=== PATIENT | female | born 1995 | race Caucasian/White ===

== ENCOUNTER 2017-09-07 08:14 | Emergency (ER) | payer BC, OTHER ==
[2017-09-07 08:34] VITALS: BP 104/74
--- NOTE | 2017-09-07 10:03 | UC ---
Throat Pain/Nasal Maximus HPI - HPI Summary HPI Summary: [address], PERDOMO, MILD COUGH/CONGESTION AND SNEEZING. NO FEVER. FLU EXPOSURE A COUPLE OF WEEKS AGO. GOT PROPHYLACTIC TAMIFLU BUT DID NOT TAKE IT. - History of Current Complaint Chief Complaint: UCGeneralIllness Stated Complaint: SORE THROAT, HEADACHE Time Seen by Provider: 09/07/17 08:38 Hx Obtained From: Patient, Family/Meat Team Member - MOM Hx Last Menstrual Period: 09/07/17 Onset/Duration: Gradual Onset, Lasting Days, Still Present Severity: Moderate Pain Intensity: 5 Pain Scale Used: 0-10 Numeric Cough: Nonproductive Associated Signs & Symptoms: Positive: Nasal Discharge. Negative: Wheezing, Hoarseness, Fever - Allergies/Home Medications Allergies/Adverse Reactions: Allergies Allergy/AdvReac Type Severity Reaction Status Date / Time Penicillins Allergy Hives Verified 09/07/17 09:59 Home Medications: Home Medications Norelgestromin/Ethin.estradiol [Xulane Patch] 1 patch TRANSDERM WEEKLY 09/07/17 [History Confirmed 09/07/17] PMH/Surg Hx/FS Hx/Imm Hx Other Cancer History: HODGKINS LYMPHOMA - Surgical History Surgical History: Yes Surgery Procedure, Year, and Place: port for chemo - Family History Known Family History: Positive: Hypertension - Social History Alcohol Use: Occasionally Substance Use Type: None Smoking Status (MU): Never Smoked Tobacco - Immunization History Vaccination Up to Date: Yes Review of Systems Constitutional: Fatigue ENT: Sore Throat, Nasal Discharge Respiratory: Cough Cardiovascular: Negative Gastrointestinal: Negative Neurological: Headache All Other Systems Reviewed And Are Negative: Yes Physical Exam Triage Information Reviewed: Yes Appearance: Well-Appearing, No Pain Distress, Well-Nourished Vital Signs: Initial Vital Signs Temp 97.9 F 09/07/17 08:26 Pulse 76 09/07/17 08:26 Resp 16 09/07/17 08:26 BP 104/74 09/07/17 08:26 Pulse Ox 97 09/07/17 08:26 Vital Signs Reviewed: Yes Eyes: Positive: Conjunctiva Clear ENT: Positive: Hearing grossly normal, Pharynx normal, TMs normal Neck: Positive: Supple, Nontender, Enlarged Nodes @ - SHOTTY SPFL CERVICAL LAD RIGHT SIDE Respiratory Exam: Normal Cardiovascular Exam: Normal Abdomen Description: Positive: Soft Musculoskeletal: Positive: No Edema Neurological: Positive: Alert Psychological: Positive: Age Appropriate Behavior Skin: Negative: rashes Diagnostics - Laboratory Diagnostic Studies Completed/Ordered: FLU NEG. STREP NEG Throat Pain/Nasal Course/Dx - Differential Dx/Diagnosis Provider Diagnoses: ACUTE PHARYNGITIS Discharge - Discharge Plan Condition: Stable Disposition: HOME Patient Education Materials: Pharyngitis (ED) Forms: *Work Release Referrals: Quintin Cisneros MD [Primary Care Provider] - If Needed Additional Instructions: FLU AND STREP TESTS BOTH NEGATIVE. YOUR SYMPTOMS ARE LIKELY VIRALLY MEDIATED AND SHOULD RESOLVE ON THEIR OWN WITH TIME. REST, HYDRATE, OTC MEDS NEEDED. SEEK FOLLOW-UP IF YOU ARE NOT IMPROVING OVER THE NEXT 1-2 WEEKS.
== END 2017-09-07 10:15 | disposition home or self-care (01) ==
LOC: UCEAST 08:14
DX: J02.9 Acute pharyngitis, unspecified (principal)
CPT/HCPCS: 87502; 87651; 99211; G0463

== ENCOUNTER 2017-09-16 18:29 | Emergency (ER) | payer BC, OTHER ==
[2017-09-16 19:22] VITALS: BP 110/71
[2017-09-16] MEDS ORDERED: Azithromycin TAB* 250 MG PO ONE (19:37)
[2017-09-16] MEDS ORDERED: Albuterol HFA INHALER* 8 gm MDI INH ONE (19:38)
[2017-09-16] MEDS ORDERED: predniSONE TAB* 20 MG PO ONE (19:38)
--- NOTE | 2017-09-16 20:47 | UC ---
Pino Morales Jason, scribed for Eric Harris MD on 09/16/17 at 1942 . Respiratory Complaint HPI - HPI Summary HPI Summary: This patient is a 22 year old F presenting to [facility] accompanied by mother with a chief complaint of cough since a few days ago. Pt complains of cough, headache, fatigue, "stomach feeling off", and chest pain that is worse when patient coughs. She states her chest feels tight when breathing, and that there is a sore throat only when I cough. She states she was ill 1 week ago, recovered, and is now experiencing similar symptoms however her coughing is new. Additionally, her father experienced the same symptoms recently and has recovered. The patient rates the pain 5/10 in severity. Symptoms aggravated by nothing. Symptoms alleviated by nothing. Patient reports productive cough, sore throat, and intermittent rhinorrhea. - History of Current Complaint Chief Complaint: UCGeneralIllness Stated Complaint: COUGH,HEADACHE Time Seen by Provider: 09/16/17 19:24 Hx Last Menstrual Period: 09/09/17 Onset/Duration: Gradual Onset, Lasting Days - "since a few days ago" Pain Intensity: 5 Pain Scale Used: 0-10 Numeric Aggravating Factors: Nothing Alleviating Factors: Nothing - Allergies/Home Medications Allergies/Adverse Reactions: Allergies Allergy/AdvReac Type Severity Reaction Status Date / Time Penicillins Allergy Hives Verified 09/16/17 19:13 Home Medications: Home Medications Dextromethorphan Polistirex [Delsym] 30 mg PO ONCE 09/16/17 [History Confirmed 09/16/17] PMH/Surg Hx/FS Hx/Imm Hx Previously Healthy: Yes Respiratory History: Other Other Respiratory History: negative asthma Other Cancer History: Hodgkin's lymphoma - Surgical History Surgical History: Yes Surgery Procedure, Year, and Place: port for chemo - Family History Known Family History: Positive: Hypertension - Social History Alcohol Use: None Substance Use Type: None Smoking Status (MU): Never Smoked Tobacco - Immunization History Vaccination Up to Date: Yes Review of Systems Constitutional: Fatigue ENT: Sore Throat - only when coughing, Other - intermittent rhinorrhea Respiratory: Cough Cardiovascular: Chest Pain - worse when patient coughs Gastrointestinal: Other - "stomach feeling off" Neurological: Headache All Other Systems Reviewed And Are Negative: Yes Physical Exam - Summary Physical Exam Summary: General: well-appearing, no pain distress Skin: warm, color reflects adequate perfusion, dry Head: normal Eyes: EOMI, CATARINA ENT: Mild posterior pharynx erythema Neck: supple, nontender, Positive anterior cervical lymphadenopathy Respiratory: CTA, breath sounds present Cardiovascular: RRR Abdomen: soft, nontender Bowel: present Musculoskeletal: normal, strength/ROM intact Neurological: normal, sensory/motor intact, A&O x3 Psychological: affect/mood appropriate Triage Information Reviewed: Yes Vital Signs: Initial Vital Signs Temp 98.8 F 09/16/17 19:15 Pulse 96 09/16/17 19:15 Resp 20 09/16/17 19:15 BP 110/71 09/16/17 19:15 Pulse Ox 100 09/16/17 19:15 Diagnostic Evaluation - Laboratory O2 Sat by Pulse Oximetry: 100 Respiratory Course/Dx - Course Course Of Treatment: In the UC course the patient was given albuterol inhaler, azithromycin, and prednisone. - Differential Dx/Diagnosis Provider Diagnoses: BRONCHITIS WITH BRONCHOSPASM Discharge - Discharge Plan Condition: Stable Disposition: HOME Prescriptions: Azithromycin TAB* [Zithromax TAB (Z-BRAYAN) 250 mg #6 tabs] 250 mg PO DAILY #4 tab guaiFENesin/CODIEN 100MG-10MG* [Robitussin AC 100Mg-10Mg*] 10 ml PO Q4H PRN # 180 ml MDD 60ML PRN Reason: Cough predniSONE TAB* [Deltasone TAB*] 40 mg PO DAILY #8 tab Patient Education Materials: Acute Bronchitis (ED), Bronchospasm (ED) Forms: *Work Release Referrals: Quintin Cisneros MD [Primary Care Provider] - Additional Instructions: FOLLOW UP WITH YOUR DOCTOR. GET RECHECKED FOR ANY WORSENING OF YOUR CONDITION OR QUESTIONS OR CONCERNS. The documentation as recorded by the Pino ibarra Jason accurately reflects the service I personally performed and the decisions made by me, Eric Harris MD.
== END 2017-09-16 19:56 | disposition home or self-care (01) ==
LOC: UCEAST 18:29
DX: J20.9 Acute bronchitis, unspecified (principal); R59.0 Localized enlarged lymph nodes; Z85.71 Personal history of Hodgkin lymphoma; Z88.0 Allergy status to penicillin
CPT/HCPCS: 99213; A9270-GY; G0463; J7512

== ENCOUNTER 2019-02-16 10:33 | Emergency (ER) | payer BC ==
[2019-02-16 11:43] LABS: Urine Appearance Clear; Urine Bacteria Absent (Absent); Urine Bilirubin Negative (Negative); Urine Blood 1+ (Negative); Urine Color Yellow; Urine Glucose Negative (Negative); Urine Ketones Negative (Negative); Urine Nitrite Negative (Negative); Urine Protein Negative (Negative); Urine Red Blood Cell Trace(0-2/hpf) (Absent); Urine Specific Gravity 1.016 (1.010-1.030); Urine Squamous Epithelial Cell Present (Absent); Urine Urobilinogen Negative (Negative); Urine White Blood Cell Trace(0-5/hpf) (Absent)
[2019-02-16 12:04] LABS: ABS Basophils 0.1 10^3/ul (0-0.2); ABS Eosinophils 0.1 10^3/ul (0-0.6); ABS Lymphocytes 2.1 10^3/ul (1.0-4.8); ABS Monocytes 0.5 10^3/ul (0-0.8); ABS Neutrophils 3.3 10^3/ul (1.5-7.7); Eosinophil % 1.5 %; Hematocrit 38 % (35-47); Hemoglobin 12.7 g/dL (12.0-16.0); Lymphocyte % 35.2 %; Mean Corpuscular HGB Conc 33 g/dL (31-36); Mean Corpuscular Hemoglobin 28 pg (27-31); Mean Corpuscular Volume 85 fL (80-97); Platelet Count 251 10^3/uL (150-450); Red Blood Count 4.46 10^6 /uL (3.70-4.87); Red Cell Distribution Width 13 % (10-15); White Blood Count 6.1 10^3/uL (3.5-10.8)
[2019-02-16 12:19] LABS: ALT 12 U/L (7-52); AST 13 U/L (13-39); Albumin 4.4 g/dL (3.2-5.2); Albumin/Globulin Ratio 1.5 (1-3); Alkaline Phosphatase 44 U/L (34-104); Anion Gap 6 mmol/L (2-11); BUN/Creatinine Ratio 12.3 (8-20); Blood Urea Nitrogen 7 mg/dL (6-24); C Reactive Protein 10.98 mg/L (<8.01); CO2 Carbon Dioxide 27 mmol/L (22-32); Calcium 9.9 mg/dL (8.6-10.3); Chloride 105 mmol/L (101-111); EGFR African American 160.5 (>60); EGFR Non-African American 132.6 (>60); Glucose 99 mg/dL (70-100); Magnesium 1.9 mg/dL (1.9-2.7); Potassium 4.2 mmol/L (3.5-5.0); Sodium 138 mmol/L (135-145); Total Protein 7.4 g/dL (6.4-8.9)
[2019-02-16 12:25] LABS: HCG Pregnancy < 0.60 mIU/mL
--- NOTE | 2019-02-16 12:32 | ED ---
Abdominal Pain/Female - HPI Summary HPI Summary: 24-year-old female presents with complaints of nausea, vomiting, diarrhea for the past 2 weeks. Patient states she typically wakes up first thing in the morning feeling very nauseated and vomits. Rarely has vomiting during the day. Patient does report 3-5 episodes of mucousy diarrhea every day which typically occurs after eating. States she has lost 14 pounds in the last 2 weeks. States 2 months ago she was having some similar symptoms however she was having abdominal pain at that time which she is not currently experiencing. She was supposed to be seen by gastroenterology and have an EGD and colonoscopy performed but her symptoms subsided and she canceled the appointment. Patient also states that she has been having her period for the last 2 weeks. However she also notes that when her symptoms started she thought it may have been related to her control patch and removed it. She has since restarted the patch. Denies fever, chills, dizziness, lightheadedness, abdominal pain, dysuria, frequency, urgency, vaginal discharge , or dyspareunia. - History of Current Complaint Chief Complaint: EDNauseaVomitDiarrh Stated Complaint: VOMITING AND DIARRHEA FOR TWO WEEKS PER PT Time Seen by Provider: 02/16/19 11:00 Hx Obtained From: Patient Hx Last Menstrual Period: 09/09/17 Pain Intensity: 0 Allergies/Adverse Reactions: Allergies Allergy/AdvReac Type Severity Reaction Status Date / Time Penicillins Allergy Hives Verified 02/16/19 11:24 Home Medications: Home Medications LORazepam [Ativan 0.5 MG TAB] 1 tab PO Q8H PRN 02/16/19 [History Confirmed 02/16] Ondansetron TAB* [Zofran 4 MG Tab*] 4 mg PO Q8H PRN 02/16/19 [History Confirmed 02/16/19] PMH/Surg Hx/FS Hx/Imm Hx Previously Healthy: Yes Endocrine/Hematology History: Denies: Hx Diabetes, Hx Thyroid Disease Cardiovascular History: Denies: Hx Hypercholesterolemia, Hx Hypertension, Hx Pacemaker/ICD, Hx Peripheral Vascular Disease Respiratory History: Denies: Hx Asthma, Hx Chronic Obstructive Pulmonary Disease (COPD) GI History: Denies: Hx Crohn's Disease, Hx Diverticulosis, Hx Gall Bladder Disease, Hx Gastroesophageal Reflux Disease, Hx Gastrointestinal Bleed, Hx Irritable Bowel, Hx Obstructive Bowel, Hx Ulcer Musculoskeletal History: Denies: Hx Arthritis, Hx Osteoporosis Sensory History: Denies: Hx Cataracts, Hx Contacts or Glasses, Hx Glaucoma, Hx Hearing Aid Opthamlomology History: Denies: Hx Cataracts, Hx Contacts or Glasses, Hx Glaucoma Neurological History: Denies: Hx Headaches, Hx Seizures, Hx Transient Ischemic Attacks (TIA) Psychiatric History: Denies: Hx Anxiety, Hx Depression, Hx Panic Disorder - Cancer History Cancer Type, Location and Year: Hodgkins lymphoma- 2014 - Surgical History Surgery Procedure, Year, and Place: port for chemo Infectious Disease History: No Infectious Disease History: Denies: Hx Clostridium Difficile, Hx Hepatitis, Hx Human Immunodeficiency Virus (HIV), Hx of Known/Suspected MRSA, Hx Shingles, Hx Tuberculosis, Hx Known/ Suspected VRE, Hx Known/Suspected VRSA, History Other Infectious Disease, Traveled Outside the [place] in Last 30 Days - Family History Known Family History: Positive: Hypertension - Social History Occupation: Employed Full-time Lives: With Family Alcohol Use: None Hx Substance Use: No Substance Use Type: Reports: None Hx Tobacco Use: No Smoking Status (MU): Never Smoked Tobacco Review of Systems Negative: Fever, Chills Cardiovascular: Negative Respiratory: Negative Positive: Vomiting, Diarrhea, Nausea, Other - Weight loss. Negative: Abdominal Pain Positive: other - Vaginal bleeding. Negative: burning, frequency, flank pain, hematuria, urgency Musculoskeletal: Negative Skin: Negative Neurological: Negative All Other Systems Reviewed And Are Negative: No Physical Exam - Summary Physical Exam Summary: GENERAL APPEARANCE: Well developed, well nourished, alert and cooperative, and appears to be in no acute distress. CARDIAC: Normal S1 and S2. No S3, S4 or murmurs. Rhythm is regular. There is no peripheral edema, cyanosis or pallor. Extremities are warm and well perfused. Capillary refill is less than 2 seconds. Peripheral pulses intact. LUNGS: Clear to auscultation without rales, rhonchi, wheezing or diminished breath sounds. ABDOMEN: Positive bowel sounds. Soft, nondistended, nontender. No guarding or rebound. No masses or hepatosplenomegally. No CVA tenderness. MUSKULOSKELETAL: ROM intact to all extremities. No joint erythema or tenderness. Normal muscular development. Normal gait. SKIN: Skin normal color, texture and turgor with no lesions or eruptions. Triage Information Reviewed: Yes Vital Signs On Initial Exam: Initial Vitals Temp Pulse Resp BP Pulse Ox 98.8 F 82 16 145/90 94 02/16/19 10:37 02/16/19 10:37 02/16/19 10:37 02/16/19 10:37 02/16/19 10:37 Vital Signs Reviewed: Yes Diagnostics - Vital Signs Vital Signs Temp Pulse Resp BP Pulse Ox 02/16/19 10:37 98.8 F 82 16 145/90 94 - Laboratory Lab Results: Lab Results 02/16/19 02/16/19 02/16/19 Range/Units 11:19 11:53 11:53 WBC 6.1 (3.5-10.8) 10^3/uL RBC 4.46 (3.70-4.87) 10^6 /uL Hgb 12.7 (12.0-16.0) g/dL Hct 38 (35-47) % MCV 85 (80-97) fL MCH 28 (27-31) pg MCHC 33 (31-36) g/dL RDW 13 (10-15) % Plt Count 251 (150-450) 10^3/uL MPV 9.0 (7.4-10.4) fL Neut % (Auto) 53.5 % Lymph % (Auto) 35.2 % Mathews % (Auto) 8.2 % Eos % (Auto) 1.5 % Baso % (Auto) 1.6 % Absolute Neuts (auto) 3.3 (1.5-7.7) 10^3/ul Absolute Lymphs (auto) 2.1 (1.0-4.8) 10^3/ul Absolute Monos (auto) 0.5 (0-0.8) 10^3/ul Absolute Eos (auto) 0.1 (0-0.6) 10^3/ul Absolute Basos (auto) 0.1 (0-0.2) 10^3/ul Absolute Nucleated RBC 0.0 10^3/ul Nucleated RBC % 0.0 Sodium 138 (135-145) mmol/L Potassium 4.2 (3.5-5.0) mmol/L Chloride 105 (101-111) mmol/L Carbon Dioxide 27 (22-32) mmol/L Anion Gap 6 (2-11) mmol/L BUN 7 (6-24) mg/dL Creatinine 0.57 (0.51-0.95) mg/dL Est GFR ( Amer) 160.5 (>60) Est GFR (Non-Af Amer) 132.6 (>60) BUN/Creatinine Ratio 12.3 (8-20) Glucose 99 (70-100) mg/dL Calcium 9.9 (8.6-10.3) mg/dL Magnesium 1.9 (1.9-2.7) mg/dL Total Bilirubin 1.00 (0.2-1.0) mg/dL AST 13 (13-39) U/L ALT 12 (7-52) U/L Alkaline Phosphatase 44 (34-104) U/L C-Reactive Protein 10.98 H (<8.01) mg/L Total Protein 7.4 (6.4-8.9) g/dL Albumin 4.4 (3.2-5.2) g/dL Globulin 3.0 (2-4) g/dL Albumin/Globulin Ratio 1.5 (1-3) Lipase 13 (11.0-82.0) U/L Beta HCG, Quant Pending Urine Color Yellow Urine Appearance Clear Urine pH 9.0 (5-9) Ur Specific Holcomb 1.016 (1.010-1.030) Urine Protein Negative (Negative) Urine Ketones Negative (Negative) Urine Blood 1+ A (Negative) Urine Nitrate Negative (Negative) Urine Bilirubin Negative (Negative) Urine Urobilinogen Negative (Negative) Ur Leukocyte Esterase Negative (Negative) Urine WBC (Auto) Trace(0-5/hpf) (Absent) Urine RBC (Auto) Trace(0-2/hpf) (Absent) Ur Squamous Epith Cells Present A (Absent) Urine Bacteria Absent (Absent) Urine Glucose Negative (Negative) Result Diagrams: 02/16/19 11:53 02/16/19 11:53 Lab Statement: Any lab studies that have been ordered have been reviewed, and results considered in the medical decision making process. Abdominal Pain Fem Course/Dx - Course Course Of Treatment: 24-year-old female presents with complaints of nausea, vomiting, diarrhea for the past 2 weeks. Patient states she typically wakes up first thing in the morning feeling very nauseated and vomits. Rarely has vomiting during the day. Patient does report 3-5 episodes of mucousy diarrhea every day which typically occurs after eating. States she has lost 14 pounds in the last 2 weeks. States 2 months ago she was having some similar symptoms however she was having abdominal pain at that time which she is not currently experiencing. She was supposed to be seen by gastroenterology and have an EGD and colonoscopy performed but her symptoms subsided and she canceled the appointment. Patient also states that she has been having her period for the last 2 weeks. However she also notes that when her symptoms started she thought it may have been related to her control patch and removed it. She has since restarted the patch. Denies fever, chills, dizziness, lightheadedness, abdominal pain, dysuria, frequency, urgency, vaginal discharge , or dyspareunia. Afebrile. Vital signs stable. She had a soft, nontender abdomen with good bowel sounds and otherwise unremarkable exam. The CBC and CMP were unremarkable. She did have an elevated CRP of 10.98. I discussed these findings with the patient. With her having stable vital signs, normal labs, and a nontender abdomen we are electing to defer imaging at this time. The patient had no episodes of vomiting or diarrhea during her stay in the emergency room. I did give her a dose of ondansetron for some nausea which did improve. We provided her with a stool collection kit and I provided and prescription for her to have a stool culture, occult blood, ova and parasite, and fecal lactoferrin done outpatient. I have recommended that she try using an [id number] antidiarrheal such as Imodium to help manage her symptoms. She is to follow-up with gastroenterology in 3-5 days for further evaluation and treatment. Anticipatory guidance and warning symptoms are reviewed with the patient. Verbalizes understanding and agrees with plan of care. - Diagnoses Differential Diagnosis: Positive: Gall Bladder Disease, Irritable Bowel Syndrome , , Urinary Tract Infection Provider Diagnoses: Acute diarrhea Discharge - Sign-Out/Discharge Documenting (check all that apply): Patient Departure Patient Received Moderate/Deep Sedation with Procedure: No - Discharge Plan Condition: Stable Disposition: HOME Prescriptions: Ondansetron TAB* [Zofran 4 MG Tab*] 4 mg PO Q8H PRN #12 tab PRN Reason: Nausea/Vomiting Patient Education Materials: Acute Diarrhea (ED) Referrals: Rizwan Iniguez MD [Primary Care Provider] - Luis Fernando Escalante MD [Medical Doctor] - 3 Days Additional Instructions: The lab work performed in the emergency room today was normal. We will send her home with a stool collection kit so that she can return a specimen for testing. Be sure to drink plenty of fluids. Avoid beverages containing caffeine or artificial sweeteners as these can worsen symptoms. Take ondansetron 4 mg every 8 hours as needed for nausea and vomiting. Be sure to eat a well balanced diet. Boiled starches and cereals (potatoes, rice , cream of wheat, oatmeal) as well as food such as crackers, toast, bananas, soups and boiled vegetables are usually recommended if you are having watery diarrhea. Be sure to use good hand hygiene to prevent spreading infection. Try using an [id number] antidiarrheal such as Imodium according to directions. Follow up with gastroenterology in 3-5 days. Call tomorrow for an appointment. Seek immediate medical attention in the emergency room if you have fever greater than 100.5 F, have severe abdominal pain, persistent vomiting, blood in your vomit or stool, you become weak or dizzy, or have any worsening of symptoms. - Billing Disposition and Condition Condition: STABLE Disposition: Home - Attestation Statements Provider Attestation: I am administratively signing this document. I was available for consultation for this patient. I did not evaluate the patient, did not have a doctor/patient relationship with the patient, or participate in any medical decision making or disposition decisions unless I am specifically named in the chart as having consulted on the patient. If I have consulted on the patient, please see my own ED note on the patient encounter. Berhane Rider MD
[2019-02-16] MEDS ORDERED: Ondansetron ODT TAB* 4 MG PO ONE (13:26)
[2019-02-16 14:30] VITALS: BP 116/80
== END 2019-02-16 14:30 | disposition home or self-care (01) ==
LOC: ED 10:33
DX: R19.7 Diarrhea, unspecified (principal); Z79.899 Other long term (current) drug therapy; Z88.0 Allergy status to penicillin
CPT/HCPCS: 36415; 80053; 81003; 81015; 83690; 83735; 84702; 85025; 86140; 87086; 99283; A9270-GY

== ENCOUNTER 2019-02-19 08:34 | Emergency (ER) | payer BC ==
--- NOTE | 2019-02-19 08:58 | ED ---
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 She visited [facility] several days ago for N/V/D and was sent home with medication. She has continued to experience N/V/D but is now complaining of pain on her lower left side that shoots upwards. She mentions that the pain feels like a period cramp. " She denies any fever, blood w/stool, or abd surgical history. Pain is currently rated 5/10 in severity. LNMP was two weeks ago, and period blood was black for 3-4 days before having tegan blood as normal. - History of Current Complaint Chief Complaint: EDAbdPain Time Seen by Provider: 02/19/19 08:49 Stated Complaint: SEVERE LEFT SIDE ABD PAIN/LEFT LEG NUMBNESS PER PT Hx Obtained From: Patient Hx Last Menstrual Period: 09/09/17 Onset/Duration: Started Hours Ago - left side pain, Started Days Ago - N/V/D, Still Present Timing: Constant, Lasting Days Severity: Moderate Current Severity: Moderate Pain Intensity: 5 Location of Pain: Flank - Left flank and shooting upwards Pain Characteristics: Cramping Associated Signs and Symptoms: Positive: Nausea, Vomiting, Diarrhea, Flank Pain - left. Negative: Blood w/Stool, Fever Additional Signs & Symptoms: Positive: Vaginal Bleeding - "Black" colored blood - Allergy/Home Medications Allergies/Adverse Reactions: Allergies Allergy/AdvReac Type Severity Reaction Status Date / Time Penicillins Allergy Hives Verified 02/19/19 08:47 PMH/Surg Hx/FS Hx/Imm Hx Endocrine/Hematology History: Denies: Hx Diabetes, Hx Thyroid Disease Cardiovascular History: Denies: Hx Hypercholesterolemia, Hx Hypertension, Hx Pacemaker/ICD, Hx Peripheral Vascular Disease Respiratory History: Denies: Hx Asthma, Hx Chronic Obstructive Pulmonary Disease (COPD) GI History: Denies: Hx Crohn's Disease, Hx Diverticulosis, Hx Gall Bladder Disease, Hx Gastroesophageal Reflux Disease, Hx Gastrointestinal Bleed, Hx Irritable Bowel, Hx Obstructive Bowel, Hx Ulcer Musculoskeletal History: Denies: Hx Arthritis, Hx Osteoporosis Sensory History: Denies: Hx Cataracts, Hx Contacts or Glasses, Hx Glaucoma, Hx Hearing Aid Opthamlomology History: Denies: Hx Cataracts, Hx Contacts or Glasses, Hx Glaucoma Neurological History: Denies: Hx Headaches, Hx Seizures, Hx Transient Ischemic Attacks (TIA) Psychiatric History: Denies: Hx Anxiety, Hx Depression, Hx Panic Disorder - Cancer History Cancer Type, Location and Year: Hodgkins lymphoma- 2014 - Surgical History Surgery Procedure, Year, and Place: port for chemo Infectious Disease History: No Infectious Disease History: Denies: Hx Clostridium Difficile, Hx Hepatitis, Hx Human Immunodeficiency Virus (HIV), Hx of Known/Suspected MRSA, Hx Shingles, Hx Tuberculosis, Hx Known/ Suspected VRE, Hx Known/Suspected VRSA, History Other Infectious Disease, Traveled Outside the [place] in Last 30 Days - Family History Known Family History: Positive: Hypertension - Social History Alcohol Use: None Hx Substance Use: No Substance Use Type: Reports: None Hx Tobacco Use: No Smoking Status (MU): Never Smoked Tobacco Review of Systems Negative: Fever Positive: Vomiting, Diarrhea, Nausea, Other - negative - blood w/stool Positive: flank pain - "cramping" left side pain shooting upwards All Other Systems Reviewed And Are Negative: Yes Physical Exam - Summary Physical Exam Summary: Appearance: Well-appearing, Well-nourished, lying in bed comfortably Skin: Warm, dry, no obvious rash Eyes: sclera anicteric, no conjunctival pallor ENT: mucous membranes moist, pharynx appears normal Neck: Supple, nontender Respiratory: Clear to auscultation, no signs of respiratory distress Cardiovascular: Normal S1, S2. No murmurs. Normal distal pulses in tibial and radial bilaterally. Abdomen: Soft, LLQ tenderness, no peritoneal signs, normal active bowel sounds present Musculoskeletal: Normal, Strength/ROM Intact Neurological: A&Ox3, awake and alert, mentation is normal, speech is fluent and appropriate Psychiatric: affect is normal, does not appear anxious or depressed Triage Information Reviewed: Yes Vital Signs On Initial Exam: Initial Vitals Temp Pulse Resp BP Pulse Ox 98.1 F 72 16 116/81 97 02/19/19 08:35 02/19/19 08:35 02/19/19 08:35 02/19/19 08:35 02/19/19 08:35 Vital Signs Reviewed: Yes Diagnostics - Vital Signs Vital Signs Temp Pulse Resp BP Pulse Ox 02/19/19 08:35 98.1 F 72 16 116/81 97 - Laboratory Result Diagrams: 02/19/19 09:04 02/19/19 09:04 Lab Statement: Any lab studies that have been ordered have been reviewed, and results considered in the medical decision making process. - CT CT A/P CT Interpretation Completed By: Radiologist Summary of CT Findings: IMPRESSION: 1. FATTY INFILTRATION OF THE LIVER WITH BORDERLINE HEPATOMEGALY. 2. HYPERVASCULAR LESION OF THE RIGHT LOBE OF THE LIVER. THE ABSENCE OF A HISTORY OF. 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 3. NO ACUTE CT PATHOLOGY OF THE VISUALIZED ABDOMEN OR PELVIS. ED Physician has reviewed this report. - Ultrasound Transvaginal US Ultrasound Interpretation Completed By: ED Physician Summary of Ultrasound Findings: IMPRESSION: UNREMARKABLE PELVIC SONOGRAM. ED Physician has reviewed this report. Re-Evaluation - Re-Evaluation First Eval Re-Evaluation Time: 10:45 Comment: discussed results with the pt. 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 She visited [facility] several days ago for N/V/D and was sent home with medication. She has continued to experience N/V/D but is now complaining of pain on her lower left side that shoots upwards. She mentions that the pain feels like a period cramp." She denies any fever, blood w/stool, or abd surgical history. LNMP was two weeks ago, and period blood was black for 3-4 days before having tegan blood as normal. The physical exam was only notable for LLQ tenderness without peritoneal signs. Test results normal except for glucose @ 110, AST @ 11, and 1+ Urine Blood. A transvaginal US reveals: UNREMARKABLE PELVIC SONOGRAM. A CT A/P reveals: 1. FATTY INFILTRATION OF THE LIVER WITH BORDERLINE HEPATOMEGALY. 2. HYPERVASCULAR LESION OF THE RIGHT LOBE OF THE LIVER. 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 3. NO ACUTE CT PATHOLOGY OF THE VISUALIZED ABDOMEN OR PELVIS. The pt was diagnosed with abdominal pain, discharged home, and instructed to follow up with PCP within 3 days. The pt is stable and agreeable with this plan. - Diagnoses Provider Diagnoses: Abdominal pain Discharge - Sign-Out/Discharge Documenting (check all that apply): Patient Departure - discharge Patient Received Moderate/Deep Sedation with Procedure: No - Discharge Plan Condition: Good Disposition: HOME Patient Education Materials: Acute Abdominal Pain (ED) Referrals: Rizwan Iniguez MD [Primary Care Provider] - 3 Days Additional Instructions: Followup with the job interviewer as scheduled. The tests we did here did not show any cause for your pain, so you will likely need further more specialized testing. - Billing Disposition and Condition Condition: GOOD Disposition: Home - Attestation Statements Document Initiated by Carmelo: Yes Documenting Scribe: Aaron Ramachandran Provider For Whom Carmelo is Documenting (Include Credential): Scott Rosado MD Scribe Attestation: Aaron Morales, scribed for Scott Rosado MD on 02/21/19 at 0434. Scribe Documentation Reviewed: Yes Provider Attestation: The documentation as recorded by the Aaron ibarra accurately reflects the service I personally performed and the decisions made by me, Scott Rosado MD Status of Scribe Document: Viewed
[2019-02-19 09:14] LABS: ABS Basophils 0.1 10^3/ul (0-0.2); ABS Eosinophils 0.1 10^3/ul (0-0.6); ABS Lymphocytes 1.8 10^3/ul (1.0-4.8); ABS Monocytes 0.4 10^3/ul (0-0.8); ABS Neutrophils 4.4 10^3/ul (1.5-7.7); Eosinophil % 1.7 %; Hematocrit 39 % (35-47); Hemoglobin 13.1 g/dL (12.0-16.0); Lymphocyte % 26.1 %; Mean Corpuscular HGB Conc 34 g/dL (31-36); Mean Corpuscular Hemoglobin 29 pg (27-31); Mean Corpuscular Volume 85 fL (80-97); Mean Platelet Volume 9.1 fL (7.4-10.4); Platelet Count 219 10^3/uL (150-450); Red Cell Distribution Width 13 % (10-15); White Blood Count 6.8 10^3/uL (3.5-10.8)
[2019-02-19 09:35] LABS: ALT 13 U/L (7-52); AST 11 U/L (13-39); Albumin 4.3 g/dL (3.2-5.2); Albumin/Globulin Ratio 1.4 (1-3); Alkaline Phosphatase 49 U/L (34-104); Anion Gap 9 mmol/L (2-11); BUN/Creatinine Ratio 14.3 (8-20); Blood Urea Nitrogen 8 mg/dL (6-24); CO2 Carbon Dioxide 24 mmol/L (22-32); Calcium 9.9 mg/dL (8.6-10.3); Chloride 108 mmol/L (101-111); EGFR African American 163.8 (>60); EGFR Non-African American 135.4 (>60); Glucose 110 mg/dL (70-100); Potassium 3.7 mmol/L (3.5-5.0); Sodium 141 mmol/L (135-145); Total Protein 7.3 g/dL (6.4-8.9)
[2019-02-19 09:57] LABS: Urine Appearance Clear; Urine Bacteria Absent (Absent); Urine Bilirubin Negative (Negative); Urine Blood 1+ (Negative); Urine Color Yellow; Urine Glucose Negative (Negative); Urine Ketones Negative (Negative); Urine Nitrite Negative (Negative); Urine Protein Negative (Negative); Urine Red Blood Cell Trace(0-2/hpf) (Absent); Urine Specific Gravity 1.012 (1.010-1.030); Urine Urobilinogen Negative (Negative); Urine White Blood Cell Trace(0-5/hpf) (Absent)
[2019-02-19 10:20] LABS: HCG Pregnancy < 0.60 mIU/mL
[2019-02-19] MEDS ORDERED: Iohexol 300* (CONTRAST) 10 ML SDV IV ONE (12:18)
[2019-02-19 14:05] VITALS: BP 115/75
== END 2019-02-19 14:05 | disposition home or self-care (01) ==
LOC: ED 08:34
DX: R10.9 Unspecified abdominal pain (principal); Z88.0 Allergy status to penicillin; K76.0 Fatty (change of) liver, not elsewhere classified; K76.9 Liver disease, unspecified
CPT/HCPCS: 36415; 74177; 76830; 80053; 81003; 81015; 84702; 85025; 87086; 99283; Q9967

== ENCOUNTER 2019-02-20 09:35 | Observation (INO) | payer BC ==
--- NOTE | 2019-02-20 09:48 | ED ---
Abdominal Pain/Female - HPI Summary HPI Summary: Patient is a 24-year-old female who presents emergency department for ongoing vomiting and diarrhea 2 months. This patient's third visit to the emergency department within one week. Patient states she has had continuous vomiting every morning and has been unable to eat or drink in the last several days. Patient states she's had a 15 pound unintentional weight loss over the last week. Patient has a remote history of lymphoma but is otherwise healthy. Patient denies fever, chest pain, shortness of breath, bloody stools. Patient notes dizziness and lightheadedness intermittently. Patient has had blood work , pelvic ultrasound and abdominal CT scan without findings. Patient is scheduled for an endoscopy and colonoscopy next week but patient's mother called office today stating her symptoms were worse and was told to come to the ER for GI evaluation. Symptoms are moderate in severity. No current modifying factors. - History of Current Complaint Chief Complaint: EDAbdPanadiya Stated Complaint: ABD PAIN NAUSEA PER PT Time Seen by Provider: 02/20/19 09:46 Hx Obtained From: Patient Hx Last Menstrual Period: 09/09/17 Pain Intensity: 4 Allergies/Adverse Reactions: Allergies Allergy/AdvReac Type Severity Reaction Status Date / Time Penicillins Allergy Hives Verified 02/19/19 08:47 PMH/Surg Hx/FS Hx/Imm Hx Previously Healthy: Yes Endocrine/Hematology History: Denies: Hx Diabetes, Hx Thyroid Disease Cardiovascular History: Denies: Hx Hypercholesterolemia, Hx Hypertension, Hx Pacemaker/ICD, Hx Peripheral Vascular Disease Respiratory History: Denies: Hx Asthma, Hx Chronic Obstructive Pulmonary Disease (COPD) GI History: Denies: Hx Crohn's Disease, Hx Diverticulosis, Hx Gall Bladder Disease, Hx Gastroesophageal Reflux Disease, Hx Gastrointestinal Bleed, Hx Irritable Bowel, Hx Obstructive Bowel, Hx Ulcer Musculoskeletal History: Denies: Hx Arthritis, Hx Osteoporosis Sensory History: Denies: Hx Cataracts, Hx Contacts or Glasses, Hx Glaucoma, Hx Hearing Aid Opthamlomology History: Denies: Hx Cataracts, Hx Contacts or Glasses, Hx Glaucoma Neurological History: Denies: Hx Headaches, Hx Seizures, Hx Transient Ischemic Attacks (TIA) Psychiatric History: Denies: Hx Anxiety, Hx Depression, Hx Panic Disorder - Cancer History Cancer Type, Location and Year: Hodgkins lymphoma- 2014 - Surgical History Surgery Procedure, Year, and Place: port for chemo Infectious Disease History: No Infectious Disease History: Denies: Hx Clostridium Difficile, Hx Hepatitis, Hx Human Immunodeficiency Virus (HIV), Hx of Known/Suspected MRSA, Hx Shingles, Hx Tuberculosis, Hx Known/ Suspected VRE, Hx Known/Suspected VRSA, History Other Infectious Disease, Traveled Outside the [place] in Last 30 Days - Family History Known Family History: Positive: Hypertension - Social History Alcohol Use: None Hx Substance Use: No Substance Use Type: Reports: None Hx Tobacco Use: No Smoking Status (MU): Never Smoked Tobacco Review of Systems Constitutional: Negative Negative: Fever, Chills ENT: Negative Cardiovascular: Negative Respiratory: Negative Positive: Abdominal Pain, Vomiting, Diarrhea, Nausea Genitourinary: Negative Neurological: Negative All Other Systems Reviewed And Are Negative: Yes Physical Exam Triage Information Reviewed: Yes Vital Signs On Initial Exam: Initial Vitals Temp Pulse Resp BP Pulse Ox 97.9 F 78 18 142/86 96 02/20/19 09:37 02/20/19 09:37 02/20/19 09:37 02/20/19 09:37 02/20/19 09:37 Vital Signs Reviewed: Yes Appearance: Positive: Well-Appearing - Pt. sitting up in bed in NAD. Mother present. Skin: Positive: Warm, Dry Head/Face: Positive: Normal Head/Face Inspection Eyes: Positive: Normal, EOMI Neck: Positive: Supple Respiratory/Lung Sounds: Positive: Clear to Auscultation, Breath Sounds Present Cardiovascular: Positive: Normal, RRR Abdomen Description: Positive: Nontender, Soft Neurological: Positive: Normal, CN Intact II-III Psychiatric: Positive: Affect/Mood Appropriate Diagnostics - Vital Signs Vital Signs Temp Pulse Resp BP Pulse Ox 02/20/19 09:37 97.9 F 78 18 142/86 96 - Laboratory Lab Statement: Any lab studies that have been ordered have been reviewed, and results considered in the medical decision making process. Abdominal Pain Fem Course/Dx - Course Course Of Treatment: Pt. with ongoing V/D. Afebrile with stable VS. Benign abd. exam. Pt. has labs yesterday that were unremarkable. Case discussed with celina SCHWARTZ, Dr. Tamayo, and he recommends admission for intractable V/N and he will plan to scope her tomorrow. Case discussed with Dr. Romeo and she accepts to her service. - Diagnoses Differential Diagnosis: Positive: Appendicitis, Bowel Obstruction, Constipation , Irritable Bowel Syndrome Provider Diagnoses: Vomiting and diarrhea, Intractable nausea and vomiting Discharge - Sign-Out/Discharge Documenting (check all that apply): Patient Departure Patient Received Moderate/Deep Sedation with Procedure: No - Discharge Plan Condition: Good Disposition: ADMITTED TO [facility] - Billing Disposition and Condition Condition: GOOD Disposition: Admitted to [facility]
[2019-02-20] MEDS ORDERED: Ondansetron INJ* 2 MG/ML VIAL IV ONE (10:33)
[2019-02-20] MEDS ORDERED: NS 0.9% 1000 ML** 1,000 ML IV ONE (10:33)
[2019-02-20] MEDS ORDERED: Acetaminophen TAB* 325 MG PO PRN (12:02)
[2019-02-20] MEDS ORDERED: PEG 3000 GI LAVAGE* 1 GALLON PO ONE (12:05)
--- NOTE | 2019-02-20 13:38 | HP ---
CC: ROBERT Malcolm; Dr. Tamayo * HISTORY AND PHYSICAL: DATE OF ADMISSION: 02/20/19 PRIMARY CARE PROVIDER: ROBERT Malcolm. CHIEF COMPLAINT: Nausea, vomiting, and diarrhea. HISTORY OF PRESENT ILLNESS: Viktoria Tavera is a 24-year-old female who presented complaining of nausea, vomiting, and diarrhea for 2-1/2 weeks. The patient stated that on a daily basis, she would have 3 to 6 loose bowel movements a day. In the morning, she would wake up with severe left lower quadrant abdominal pain and vomit once or twice and she feels a little bit better, but continues to have discomfort in the left lower quadrant throughout the day and loose bowel movements. Her appetite would be poor due to that and whatever she eats, she feels like she needs to go to have a bowel movement right away. She has lost approximately 15 pounds in the past 2 weeks. She denies any problems with blood in her stool. On admission in October 2018, she had a similar episode of diarrhea, but at this time her abdominal pain was in the right upper quadrant and resolved spontaneously after approximately a couple of weeks. The patient is going to be placed on overnight observation and Dr. Tamayo will perform an upper and lower endoscopy in the morning. PAST MEDICAL HISTORY: History of Hodgkin lymphoma, status post chemotherapy in 2013. MEDICATIONS AT HOME: Include: 1. Lorazepam 0.5 mg t.i.d. p.r.n. 2. control patch Xulane 1 patch weekly. 3. Zofran 4 mg every 8 hours p.r.n. ALLERGIES: PENICILLIN causes hives. FAMILY HISTORY: Positive for hypertension in both parents. SOCIAL HISTORY: The patient denies any tobacco, alcohol or drug use. She stated that she has not been able to tolerate alcohol for the past year or so and she gets flushed very quickly. That started when she turned 23. Before, she was able to tolerate liquor without any major problems. As for her surrogate decision maker, she named her mother, Vargas Moran. REVIEW OF SYSTEMS: Please see the history of present of illness. All the remaining 12 systems were reviewed with the patient and were, otherwise, negative. PHYSICAL EXAMINATION GENERAL: The patient is a very pleasant 24-year-old female who is in no acute distress. Alert, awake, and oriented x3. VITAL SIGNS: Blood pressure is 142/86, heart rate of 78 and regular, respiratory rate 18, oxygen saturation 96% on room air, temperature 97.9. HEENT: Head: Atraumatic, normocephalic. Eyes: Pupils are equal, reactive to light and accommodation. Oropharynx is clear. Mucosa is moist. NECK: Supple. No JVD. No bruits bilaterally. RESPIRATORY: Clear to auscultation bilaterally. CARDIOVASCULAR: Regular rate and rhythm. No murmur. ABDOMEN: Soft, minimally tender in the left lower quadrant with no rebound and no guarding. Bowel sounds are present in all 4 quadrants. EXTREMITIES: There is no edema. Pulses are +2 bilaterally. No clubbing or cyanosis. NEURO EVALUATION: Cranial nerves II through XII are grossly intact. Motor strength is 5/5 bilaterally. Speech is clear. DIAGNOSTIC STUDIES/LAB: Laboratory data was obtained yesterday when the patient was in the ER. It showed white blood cell count of 6.8, hemoglobin 13.1 , hematocrit 39, and platelets 219. Sodium 141, potassium 3.7, chloride 108, carbon dioxide 24, BUN 8, creatinine 0.56. Liver function is unremarkable. Beta hCG below 0.6. Urinalysis was unremarkable, apart from trace of blood. The patient's stool cultures and parasite exam is pending. CT of abdomen and pelvis obtained on 02/19/19, impression: "Fatty infiltration of the liver with borderline hepatomegaly. Hypervascular lesion of the right lobe of the liver. In the absence of history of malignancy, risk factors for hepatocellular carcinoma. That most likely represents an incidental hemangioma. No acute CT pathology of the visualized abdomen and pelvis." The patient also had a transvaginal ultrasound obtained on 02/19/19 which showed impression, "Unremarkable pelvic sonogram." ASSESSMENT AND PLAN: A 24-year-old female who presents with 2-1/2 weeks' story of intermittent nausea, loose stools, and weight loss. At this point, the differential includes an infectious cause versus inflammatory bowel disease. The patient is going to be placed on overnight observation and Dr. Tamayo will perform an upper and lower endoscopy in the morning. The patient is going to be placed on GoLYTELY prep with intravenous hydration. For DVT prophylaxis, the patient is low risk and she is going to be encouraged with ambulation. The patient's code status is full and her surrogate is her mother. TIME SPENT: Approximately 55 minutes were spent on the admission of this patient; more than half that time was spent [id number] with the patient during the interview and physical exam. [id number]/[facility] #: [id number] NETO
[2019-02-20] MEDS: NS 0.9% 1000 ML** 1,000 ML IV SCH (14:00)
[2019-02-20] MEDS: Ondansetron INJ* 2 MG/ML VIAL IV PRN ×2 (15:52→20:55)
--- NOTE | 2019-02-20 17:50 | CONS ---
CC: ROBERT Peters * CONSULTATION REPORT: DATE OF CONSULT: 02/20/19 REASON FOR CONSULT: Nausea, vomiting, diarrhea. HISTORY OF PRESENT ILLNESS: This is a 24-year-old female, who initially called our answering service this morning admitting to extremely sharp left lower quadrant pain, nausea, vomiting, and diarrhea for the last 2-1/2 weeks. She states that each day she has 3 to 6 loose to liquid bowel movements a day. It will occasionally wake her up in the evening, when she is sleeping, to have a bowel movement. It can be worse after a meal. She states the pain is sharp in the left lower quadrant and associated with nausea and emesis at times. She states that the first emesis she had was in the morning and it was the previous food that she had eaten the previous day. The pain has continued and became quite intense this morning prompting the call to the answering service. She has had multiple trips to the emergency room that have been nondiagnostic in nature. Her appetite has been poor and she states that she has lost 15 pounds within the last 2 weeks. Prior to this, her bowels were moving normally, she evacuated every day. She denies any black or blood in the stool. No dysphagia , no odynophagia. She did have a similar episode back in October that was self- resolving; however, the pain was located in the right upper quadrant at that time. No new medications recently. No unusual foods. The remainder of the 14- point review of systems is grossly negative. The patient notes that she has been under more stress recently after a breakup 2 weeks ago. PAST MEDICAL HISTORY: History of Hodgkin lymphoma, status post chemotherapy in 2013. HOME MEDICATIONS: Include control. ALLERGIES: PENICILLIN causes hives. FAMILY HISTORY: No family history of GI cancer or IBD. SOCIAL HISTORY: Denies any tobacco, alcohol, or drug use. She states she has flushing after consuming alcohol and has not consumed in some time. REVIEW OF SYSTEMS: Remainder of the 14-point review of systems is grossly negative. PHYSICAL EXAM: Vital Signs: Blood pressure 128/85, pulse 62, respiratory rate of 16, temperature is 97.9, and 98% on room air. In general, alert and oriented x3, in no acute distress. HEENT: Atraumatic, normocephalic. Pupils equal, round, reactive to light. Extraocular movements are intact. Sclerae are anicteric. Conjunctivae are pink. Cardiovascular: Regular rate and rhythm. S1, S2. Respiratory: Clear to auscultation bilaterally. Abdomen: Soft. [id number] tenderness in the left lower quadrant. No guarding or rebound. Bowel sounds positive. No palpable hepatosplenomegaly. Extremities: No clubbing, no cyanosis, no edema. Skin: There is a scant discoloration on the right malleolus to dorsal aspect of the foot. Psych: Appropriate mood and affect. DIAGNOSTIC STUDIES/LAB DATA: Hemoglobin 13.1, platelet count 219. CRP 10.98. AST 11, ALT 13. Stool H. pylori in October was negative. Celiac testing in October was negative. Stool studies pending, but negative for C. diff so far. She had a CT of the abdomen and pelvis on 02/19/19, which showed fatty infiltration of the liver with borderline hepatomegaly; hypervascular lesion in the right lobe of the liver, likely an incidental hemangioma. No acute pathology of the abdomen and pelvis. She had a transvaginal ultrasound on 02/19/19 that was unremarkable. ASSESSMENT AND PLAN: This is a 24-year-old female presenting with nausea, vomiting, diarrhea. 1. Nausea, vomiting. No clear etiology at this point. Denies NSAID usage. Similar episode back in October. Does not use marijuana. We will plan on upper endoscopy to evaluate. Discussed the risks, benefits, and alternatives and would like to proceed with evaluation. CT has been negative to date. 2. Diarrhea. Stool studies pending, but negative for C. diff. Given the nocturnal nature of her loose stools that wake her out of sleep, concern can be for secretory diarrhea. We will plan on colonoscopy to evaluate. Discussed the risks, benefits, and alternatives and would like to proceed. 3. Left lower quadrant pain. No clear etiology to date. If colonoscopy and upper endoscopy unrevealing, we would pursue gynecologic evaluation. [id number]/[facility] #: [id number] NETO
[2019-02-20] MEDS: PROCHLORPERAZINE INJ 5 MG/ML 2 ML VIAL IV PRN (23:24)
[2019-02-21] MEDS: Ondansetron INJ* 2 MG/ML VIAL IV PRN (01:12)
[2019-02-21] MEDS: NS 0.9% 1000 ML** 1,000 ML IV SCH (02:51)
[2019-02-21] MEDS: PROCHLORPERAZINE INJ 5 MG/ML 2 ML VIAL IV PRN (08:31)
[2019-02-21 08:50] LABS: ABS Eosinophils 0.1 10^3/ul (0-0.6); ABS Lymphocytes 1.9 10^3/ul (1.0-4.8); ABS Monocytes 0.4 10^3/ul (0-0.8); ABS Neutrophils 5.3 10^3/ul (1.5-7.7); Eosinophil % 0.7 %; Hematocrit 40 % (35-47); Hemoglobin 13.5 g/dL (12.0-16.0); Mean Corpuscular HGB Conc 34 g/dL (31-36); Mean Corpuscular Hemoglobin 29 pg (27-31); Mean Corpuscular Volume 85 fL (80-97); Mean Platelet Volume 9.5 fL (7.4-10.4); Nucleated Red Blood Cells % 0.1; Platelet Count 218 10^3/uL (150-450); Red Blood Count 4.67 10^6 /uL (3.70-4.87); Red Cell Distribution Width 13 % (10-15); White Blood Count 7.6 10^3/uL (3.5-10.8)
[2019-02-21 09:02] LABS: Albumin 4.5 g/dL (3.2-5.2); Albumin/Globulin Ratio 1.5 (1-3); BUN/Creatinine Ratio 7.1 (8-20); C Reactive Protein 6.24 mg/L (<8.01); Calcium 9.8 mg/dL (8.6-10.3); EGFR African American 163.8 (>60); EGFR Non-African American 135.4 (>60); Globulin 3.1 g/dL (2-4); Potassium 4.2 mmol/L (3.5-5.0); Total Bilirubin 1.1 mg/dL (0.2-1.0); Total Protein 7.6 g/dL (6.4-8.9)
[2019-02-21] MEDS ORDERED: LORazepam INJ* 2 MG/ML 1 ML VIAL IV PUSH PRN (10:12)
[2019-02-21] MEDS ORDERED: Lorazepam PYXIS KEY PRN (10:12)
--- NOTE | 2019-02-21 10:28 | PN ---
Subjective Date of Service: 02/21/19 Interval History: Pt c/o constant nausea. Abd pain is resolved. Drunk 1/2 gallon of Golytely and her BM's are clear Objective Active Medications: Acetaminophen (Tylenol Tab*) 650 mg PO Q4H PRN PRN Reason: Fever>100.9/Pain Last Admin: 02/20/19 18:23 Dose: 650 mg Sodium Chloride (Ns 0.9% 1000 Ml) 1,000 mls @ 75 mls/hr IV PER RATE VIVIANE Last Admin: 02/21/19 02:51 Dose: 75 mls/hr Lorazepam (Ativan Inj*) 0.5 mg IV PUSH Q4H PRN PRN Reason: ANXIETY Miscellaneous (Ativan Pyxis Finn) 1 ea N/A .ATIVAN IV FINN PRN PRN Reason: PYXIS FINN Ondansetron HCl (Zofran Inj*) 4 mg IV Q4H PRN PRN Reason: NAUSEA/VOMITING Last Admin: 02/21/19 01:12 Dose: 4 mg Pharmacy Profile Note (Scopolamine Patch Remove*) 1 note PATCH OFF Q72H [facility] Prochlorperazine Edisylate (Compazine Inj*) 10 mg IV Q6H PRN PRN Reason: nausea not relieved by zofran Last Admin: 02/21/19 08:31 Dose: 10 mg Scopolamine (Transderm-Scop 1.5 Mg Patch*) 1 patch TRANSDERM Q72H [facility] Vital Signs - 8 hr 02/21/19 03:15 Temperature 98.1 F Pulse Rate 75 Respiratory 18 Rate Blood Pressure 117/63 (mmHg) O2 Sat by Pulse 98 Oximetry Oxygen Devices in Use Now: None Appearance: 24 yo F in nAD, aAOx3 Eyes: No Scleral Icterus, PERRLA Ears/Nose/Mouth/Throat: NL Teeth, Lips, Gums, Mucous Membranes Moist Neck: NL Appearance and Movements; NL JVP, Trachea Midline Respiratory: Symmetrical Chest Expansion and Respiratory Effort, Clear to Auscultation Cardiovascular: NL Sounds; No Murmurs; No JVD Abdominal: NL Sounds; No Tenderness; No Distention Lymphatic: No Cervical Adenopathy Extremities: No Edema, No Clubbing, Cyanosis Skin: No Rash or Ulcers, No Nodules or Sclerosis Neurological: Alert and Oriented x 3, NL Muscle Strength and Tone Result Diagrams: 02/21/19 07:56 02/21/19 07:56 Microbiology and Other Data: Microbiology 02/20/19 10:44 Stool Gross Appearance - Final Stool C. difficile DNA Amplification - Final 027 Presumptive NEGATIVE Toxigenic C.diff NEGATIVE Assess/Plan/Problems-Billing Assessment: 24 yo F with 2 weeks of abd pain, wt loss, diarrhea, nausea - Patient Problems (1) Nausea & vomiting Comment: will use scopolamine patch and Ativan ptn. Pt used Ativan in the past Adb pain resolved. Planned of EGD and colonoscopy late afternoon. May not be able to be discharged today if the procedure is delayed. cont IVF, NPO for procedure (2) DVT prophylaxis Comment: ambulation Status and Disposition: OBV
[2019-02-21] MEDS ORDERED: Scopolamine 1.5 mg* PATCH TRANSDERM SCH (11:00)
[2019-02-21] MEDS ORDERED: Midazolam* 1 MG/ML 10 ML VIAL (10 MG) ONE (14:20)
[2019-02-21] MEDS ORDERED: fentaNYL* 50 MCG/ML 2 ML VIAL (100 MCG VIAL) ONE (14:21)
[2019-02-21] MEDS ORDERED: Ondansetron INJ* 2 MG/ML VIAL ONE (14:24)
--- NOTE | 2019-02-21 17:10 | PRO ---
CC: Dr. Ashley Romeo; Dr. Rizwan Iniguez * DATE OF PROCEDURE: 02/21/19 - ROOM #420 PROCEDURE: Colonoscopy with biopsy. REFERRING PROVIDER: Dr. Ashley Romeo. PRIMARY CARE PROVIDER: Dr. Rizwan Iniguez. INDICATION: The patient admitted to the hospital with nausea and vomiting, left lower quadrant discomfort, and diarrhea. Symptoms have been present off and on for the past 2-1/2 weeks. She had some weight loss in the same period. She did have a breakup approximately 2 weeks ago, which has caused her to be very stressed. History also notable for Hodgkin's lymphoma, status post chemotherapy in 2013. Labs including CBC, comprehensive panel, and CRP were unremarkable other than a very mildly elevated bilirubin to 1.1, which is similar to prior labs dating back to 2011. CT abdomen and pelvis during an ER visit several days ago demonstrated fatty infiltration of the liver and the hypervascular lesion in the right lobe of the liver, felt to likely represent a hemangioma. No other acute findings noted. Transvaginal ultrasound was negative. Recommendation was for an EGD and colonoscopy. MEDICATIONS GIVEN: 1. Midazolam 16 mg IV. 2. Fentanyl 100 mcg IV. 3. Zofran 4 mg IV. DESCRIPTION OF PROCEDURE: Full disclosure of risks was reviewed with the patient as detailed on the consent form. The patient was placed in the left lateral decubitus position and monitored with continuous pulse oximetry, capnography, interval blood pressure monitoring, and direct observation. After anorectal examination was performed, the adult colonoscope was inserted into the rectum and slowly advanced to the level of the terminal ileum. Complete views of the cecum were obtained including the medial wall between the IC valve and the appendiceal orifice. Quality of the prep in the right colon was borderline poor. Views after extensive washing and suctioning in the right colon were enough to confirm that there was no colitis or large polyps or masses. Prep throughout the remainder of the colon was otherwise fair, but required extensive washing and suctioning. Liquid simethicone also used. Photodocumentation of landmarks obtained. Careful inspection was made as the colonoscope was withdrawn. Retroflexion was performed in the rectum. Findings and interventions are described below. FINDINGS: Anorectal exam was unremarkable. Scope was inserted into the rectum and slowly advanced forward to the cecum. Once in the cecum, the terminal ileum was intubated x10 cm. Ileal mucosa appeared unremarkable, although the prep was poor. Scope was then withdrawn back into the cecum and then throughout the length of the colon. No evidence of colitis. No fresh or old blood. No polyps or masses. No diverticulosis. Random biopsies were obtained throughout the colon and rectum. Retroflexion in the rectum revealed small internal hemorrhoids and hypertrophied anal papillae. Scope was then withdrawn from the patient. The patient tolerated the procedure well and was recovered in the GI recovery area. IMPRESSION: 1. Complete colonoscopy to the terminal ileum. Fair to borderline poor prep, particularly in the right colon. 2. Small internal hemorrhoids and hypertrophied anal papillae. 3. No explanation for the patient's symptoms seen on exam. Biopsies obtained to rule out microscopic colitis. FOLLOWUP: 1. Await pathology. 2. I am suspicious for a functional GI disorder, particularly given her recent increased stress level related to a breakup. There have been no lab abnormalities or imaging abnormalities. EGD and colonoscopy today were unremarkable. We would recommend a course of Xifaxan 550 mg t.i.d. for 2 weeks. This would treat SIBO as well as a portion of patients with IBS with diarrhea predominance. Can also use hyoscyamine or dicyclomine p.r.n. for abdominal cramping. 3. We will schedule followup in clinic. Thank you very much for this referral. [id number]/[facility] #: [id number] NETO
--- NOTE | 2019-02-21 17:36 | PRO ---
CC: Ashley Romeo MD; Rizwan Iniguez MD * DATE OF PROCEDURE: 02/21/19 - ROOM #420 PROCEDURE: EGD with biopsy. INPATIENT PROVIDER: Ashley Romeo MD. PRIMARY CARE PHYSICIAN: Rizwan Iniguez MD. INDICATION: The patient was admitted with nausea, vomiting, lower abdominal pain, and diarrhea for the past 2 to 2-1/2 weeks, associated with some weight loss. Significant increase in stress after a breakup 2 weeks ago. Labs unremarkable including white count, H and H, LFTs, and CRP. CT abdomen and pelvis demonstrated hepatic steatosis and possible hemangioma in the liver. Otherwise, no acute findings on imaging. MEDICATIONS GIVEN: 1. Midazolam 18 mg IV. 2. Fentanyl 100 mcg IV. 3. Zofran 4 mg IV. DESCRIPTION OF PROCEDURE: Full disclosure of risks was reviewed with the patient as detailed on the consent form. The patient was placed in the left lateral decubitus position and monitored with continuous pulse oximetry, capnography, interval blood pressure monitoring, and direct observation. A bite block was placed between the patient's teeth. An adult gastroscope was then inserted into the patient's mouth and advanced down the esophagus, into the stomach, and into the distal duodenum. Findings and interventions are described below. FINDINGS: Esophagus was a tubular structure without rings or strictures. GE junction was regular and occurred at 35 cm. There was very minimal erythema in the distal esophagus. Biopsies were obtained from the mid and distal esophagus to rule out eosinophilic esophagitis. Scope was then advanced into the stomach. Stomach was examined in the forward and retroflex views. There were no gastric erosions or ulcers. There was a small sessile lesion in the gastric body, which is likely a small polyp. Biopsies obtained. Biopsies also obtained from the gastric antrum and body for histologic evaluation as well as CLOtest to rule out H. pylori. Scope was then advanced into the duodenum to at least the third portion. Possible mild flattening of villi diffusely. No scalloping or other evidence to suggest celiac disease endoscopically. Biopsies were obtained from the duodenum for histologic evaluation. Biopsies also obtained to send for disaccharidase enzyme testing. Scope was then withdrawn from the patient. The patient tolerated the procedure well and was recovered in the GI recovery area. IMPRESSION: 1. Complete upper endoscopy to the distal duodenum. 2. Small probable gastric polyp, biopsied. 3. Possible flattening of duodenal villi. 4. Otherwise unremarkable exam without explanation for the patient's symptoms. FOLLOWUP: 1. Await pathology. 2. Start omeprazole 40 mg daily. 3. Continue antiemetics p.r.n. 4. Diet as tolerated. 5. If the patient's nausea persists despite PPI therapy, then I would consider a gastric emptying study. 6. Proceed with colonoscopy as previously planned. Thank you very much for this referral. [id number]/[facility] #: [id number] NETO
--- NOTE | 2019-02-21 18:50 | DS ---
CC: Dr. Iniguez; Dr. Dennison * DISCHARGE SUMMARY: DATE OF ADMISSION: 02/20/19 DATE OF DISCHARGE: 02/21/19 PRIMARY CARE PROVIDER: Dr. Iniguez. DISCHARGE DIAGNOSES: Nausea, vomiting, abdominal pain in patient status post upper and lower endoscopy with grossly unremarkable results. Please refer to Dr. Dima Colon's report for details. SECONDARY DIAGNOSES: 1. History of Hodgkin's lymphoma in 2013, status post chemotherapy. 2. History of anxiety. MEDICATIONS AT DISCHARGE: Include: 1. Lorazepam 0.5 mg t.i.d. p.r.n. 2. Xulane 1 patch transdermally weekly for control. 3. Anaspaz 0.125 mg every 6 hours for abdominal spasms. 4. Imodium 2 mg tablets, use 1 tablet after 3 loose bowel movements a day, limit use to 3 tablets a day. 4. Omeprazole 40 mg a day. 5. Zofran 4 mg every 8 hours p.r.n. nausea 6. Rifaximin 550 mg b.i.d. for a total of 2 weeks. At discharge, the patient recommended to follow up with her primary care provider in approximately 4 to [address] Dennison in approximately 1 to 2 weeks. HOSPITALIZATION COURSE: Viktoria Tavera is a 24-year-old female with history of Hodgkin's lymphoma diagnosed in 2013 and treated in 2013, who presented complaining of 2 weeks of nausea, vomiting, diarrhea and 15 pounds weight loss. For further details of the patient's presentation, please see history and physical dictated by myself the day prior. The patient was placed in overnight observation and upper and lower endoscopy was performed today by Dr. Dima Colon. Dr. Dennison's verbal report stated that both of the endoscopies were unremarkable. At this point, the differential includes possibility of small bacterial overgrowth versus irritable bowel syndrome. RECOMMENDATION: He is to use Anaspaz and Imodium on a p.r.n. basis, omeprazole 40 mg a scheduled basis daily and treat the patient with rifaximin 550 mg 3 times a day for total of 2 weeks. The patient currently is after the endoscopy and she is somewhat somnolent. She tolerated her diet well. She is going to be discharged today to home. CONDITION ON DISCHARGE: Stable. DISPOSITION: Discharge to home. For physical exam at the time of discharge, please see the progress note. LABORATORY DATA DURING THE HOSPITAL STAY: Included stool test negative for cryptosporidium as well Giardia as well as C. diff as well as Shiga toxin 1 and 2 were negative. Remaining parasite exam is pending of the stool. On 02/21/19; sodium of 138, potassium of 4.2, chloride 104, carbon dioxide 25, BUN 4, creatinine 0.56. Liver functions unremarkable apart from small elevation of bilirubin of 1.1. White blood cell count of 7.6, hemoglobin of 13.5, hematocrit of 40, and platelets of 218. The patient's C-reactive protein was 6.2. Please note that this is a short summary of the patient's hospitalization. Please refer to further medical records for details. [id number]/[facility] #: [id number] MTDD
[2019-02-21 20:08] VITALS: BP 111/58
[2019-02-24] MEDS ORDERED: Scopolamine PATCH Remove* 1 NOTE MISC PATCH OFF SCH (11:00)
== END 2019-02-21 19:50 | disposition home or self-care (01) ==
LOC: ED 09:35 → MED 12:02
PROVIDERS: ADMIT Internal Medicine; ATTEND Internal Medicine
PROC: 0DB98ZX Excision of Duodenum, Via Natural or Artificial Opening Endoscopic, Diagnostic (ICD-10-PCS; principal; 2019-02-20)
PROC: 0DB68ZX Excision of Stomach, Via Natural or Artificial Opening Endoscopic, Diagnostic (ICD-10-PCS; 2019-02-20)
PROC: 0DB58ZX Excision of Esophagus, Via Natural or Artificial Opening Endoscopic, Diagnostic (ICD-10-PCS; 2019-02-20)
PROC: 0DBP8ZX Excision of Rectum, Via Natural or Artificial Opening Endoscopic, Diagnostic (ICD-10-PCS; 2019-02-20)
PROC: 0DBE8ZX Excision of Large Intestine, Via Natural or Artificial Opening Endoscopic, Diagnostic (ICD-10-PCS; 2019-02-20)
DX: R11.2 Nausea with vomiting, unspecified (principal); R10.32 Left lower quadrant pain; R19.7 Diarrhea, unspecified; Z85.71 Personal history of Hodgkin lymphoma; F41.9 Anxiety disorder, unspecified; Z88.0 Allergy status to penicillin; Z82.49 Family history of ischemic heart disease and other diseases of the circulatory system; Z79.899 Other long term (current) drug therapy
CPT/HCPCS: 36415; 80053; 82657; 85025; 86140; 87045; 87046; 87077; 87177; 87209; 87328; 87329; 87493; 87899; 88305; 88342; 96361; 96374; 96375; 96376; 99156; 99157; 99282; A9270-GY; G0378; J0780; J2060; J2250; J2405; J3010

== ENCOUNTER 2019-10-05 18:38 | Emergency (ER) | payer BC ==
--- OUTSIDE RECORDS SUMMARY | 2019-10-05 19:05 | XMS REPORT | Summary of Care ---
:1995 Author Organization [facility] Address [address] [place] [address] Care Team Providers Name Role Phone Rizwan Iniguez MD Primary Care Provider Reason for Referral Surgical (Routine) Status Reason Specialty Diagnoses / Referred By Referred To Procedures Contact Contact Hold Specialty Plastic Surgery Diagnoses Hodgkin lymphoma of intrathoracic lymph nodes, unspecified Hodgkin lymphoma type Jeanne Alvarado, Plastic Surgery Services Provider-Based Required [address] [place], [place] [address] [address] Phone: [place], [place] [phone] Fax: Email: [email or web address] Reason for Visit Reason Comments Follow-up Encounter Details Date Type Department Care Team Description 09/03/2019 Hospital Encounter Dodie Doe Personal history of Hodgkin lymphoma (Primary Dx); Pako Olivera MD Personal history of chemotherapy; [facility] [address] [facility] Hodgkin lymphoma of intrathoracic lymph nodes, unspecified Hodgkin lymphoma type and Blood Disorders [place], [place] at the [facility] [address] [facility] [phone] [address] [facility] [phone] [place], [place] (Fax) [phone] Allergies Active Allergy Reactions Severity Noted Date Comments Penicillins 08/22/2013 documented as of this encounter (statuses as of 09/07/2019) Medications Medication Sig Dispensed Refills Start Date End Date Status Norelgestromin-Eth Place 1 patch 0 Active Estradiol (XULANE onto the skin TD)Indications: 3 weeks once a week on, 1 week off Norgestim-Eth Estrad Take by mouth 0 Active Triphasic 0.18/0.215/0.25 MG-25 MCG Oral Tablet documented as of this encounter (statuses as of 09/07/2019) Active Problems Problem Noted Date History of antineoplastic chemotherapy 09/10/2013 Overview: 09/10/13-11/19/13 4 cycles of ABVE-PC per [facility] [id number] Doxorubicin 200 mg/m2 Bleomycin 60 units/m2 Vincristine 11.2 mg/m2 Etoposide 1500 mg/m2 cyclophosphamide 3200 mg/m2 Prednisone Support with Neupogen ECHO reports date FS EF 09/04/13 38.3 68.68 11/12/14 37.89 67.69 Hodgkin's disease, IIa 08/22/2013 Cancer Staging: Clinical: Stage II - Unsigned Pathologic: Stage II - Unsigned Overview: 08/2013 presented with incidental finding on chest CT of mediastinal left mass - PET left mediastinal SUV 8.2, substernal SUV 3.7 08/2013 to therapy per [facility] [id number] with ABVE-PC x 4 cycles documented as of this encounter (statuses as of 09/07/2019) Resolved Problems Problem Noted Date Resolved Date Mucositis (ulcerative) due to antineoplastic therapy 11/23/2013 12/19/2013 Pancytopenia due to antineoplastic chemotherapy 11/23/2013 12/19/2013 Leukemia 11/02/2013 11/02/2013 Other stomatitis and mucositis (ulcerative) 11/02/2013 11/07/2013 Anemia, unspecified 11/02/2013 11/07/2013 Thrombocytopenia due to drugs 11/02/2013 11/18/2013 Fever and neutropenia 09/20/2013 10/01/2013 Neuropathy due to chemotherapeutic drug 09/20/2013 05/05/2014 Back pain 09/20/2013 10/01/2013 Pancytopenia 09/20/2013 10/01/2013 Tachycardia 09/20/2013 09/21/2013 Febrile neutropenia 09/20/2013 09/21/2013 documented as of this encounter (statuses as of 09/07/2019) Immunizations Name Administration Dates Next Due Influenza Quad IM with Pres (0.5 mL dose) 08/19/2014 documented as of this encounter Social History Tobacco Use Types Packs/Day Years Used Date Never Smoker Smokeless Tobacco: Never Used Alcohol Use Drinks/Week oz/Week Comments No Sex Assigned at Date Recorded Not on file Job Start Date Occupation Industry Not on file Not on file Not on file Travel History Travel Start Travel End No recent travel history available. documented as of this encounter Last Filed Vital Signs Vital Sign Reading Time Taken Comments Blood Pressure 114/76 09/03/2019 2:06 PM EST Pulse 75 09/03/2019 2:06 PM EST Temperature 36.8 09/03/2019 2:06 PM C (98.2 EST F) Respiratory Rate 18 09/03/2019 2:06 PM EST Oxygen Saturation 100% 09/03/2019 2:06 PM EST Inhaled Oxygen Concentration - - Weight 73.8 kg (162 lb 11.2 oz) 09/03/2019 2:06 PM EST Height 163.5 cm (5' 4.37") 09/03/2019 2:06 PM EST Body Mass Index 27.61 09/03/2019 2:06 PM EST documented in this encounter Plan of Treatment Name Type Priority Associated Diagnoses Date/Time Anti-Mulerian Hormone Lab Routine 09/03/2019 2:49 PM EST Rubeola antibody IgG Lab Routine 09/03/2019 2:49 PM EST Name Type Priority Associated Diagnoses Order Schedule Anti-Mulerian Hormone Lab Routine Once for 1 Occurrences starting 09/03/2019 until 09/03/2019 Vitamin D 25 hydroxy Lab Routine Once for 1 Occurrences starting 09/03/2019 until 09/03/2019 Rubeola antibody IgG Lab Routine Once for 1 Occurrences starting 09/03/2019 until 09/03/2019 Name Type Priority Associated Diagnoses Order Schedule Referral to Outpatient Referral Routine Hodgkin lymphoma of Ordered: Plastic Surgery intrathoracic lymph 09/05/2019 nodes, unspecified Hodgkin lymphoma type Health Maintenance Due Date Last Done Comments MMR Vaccines (1 of 1 - Standard 1998 series) Varicella Vaccines (1 of 2 - 1998 2-dose childhood series) Pneumococcal Vaccine: Pediatrics 2003 (0 to 5 Years) and At-Risk Patients (6 to 64 Years) (1 of 3 - PCV13) DTaP,Tdap,and Td Vaccines (1 - 02/07/2004 Tdap) HPV Vaccines (1 - Female 2-dose 02/07/2008 series) HIV Screening 2010 Chlamydia Screening 2013 Cervical Cancer Screening 3 years 2018 Influenza Vaccine 04/22/2019 08/19/2014 Pneumococcal Vaccine: 65+ Years (1 2062 of 2 - PCV13) HIB Vaccines Aged Out No longer eligible based on patient's age to complete this topic Hepatitis A Vaccines Aged Out No longer eligible based on patient's age to complete this topic Hepatitis B Vaccines Aged Out No longer eligible based on patient's age to complete this topic IPV Vaccines Aged Out No longer eligible based on patient's age to complete this topic documented as of this encounter Procedures Procedure Name Priority Date/Time Associated Comments Diagnosis ESTRADIOL GENERATION 3 Routine 09/03/2019 2:49 Results for this >=12YO PM EST procedure are in the results section. CBC AND DIFFERENTIAL STAT 09/03/2019 2:49 Results for this PM EST procedure are in the results section. LUTEINIZING HORMONE Routine 09/03/2019 2:49 Results for this PM EST procedure are in the results section. FOLLICLE STIMULATING Routine 09/03/2019 2:49 Results for this HORMONE PM EST procedure are in the results section. COMPREHENSIVE Routine 09/03/2019 2:49 Results for this METABOLIC PANEL PM EST procedure are in the results section. documented in this encounter Results Estradiol Generation 3 >=12YO (09/03/2019 2:49 PM EST) Estradiol Generation 39.0 pg/mL [facility] 3 Comment: [facility] (NOTE) Pathology Females Follicular: 26.7-156.0 Ovulation: 48.1-314.0 Luteal: 33.1-298.0 Post Menopausal: <49.9 Specimen Plasma Performing Organization Address City/State/Zipcode Phone Number [facility] [address] [place] [address] [facility] [address] [place] [address] Pathology Follicle stimulating hormone (09/03/2019 2:49 PM EST) Follicle Stimul 6.7 mU/ml [facility] Horm Comment: Univ [facility] Pathology (NOTE) Females Follicular: 3.5- 12.5 Ovulation: 4.7- 21.5 Luteal: 1.7- 7.7 Post Menopausal: 25.8-134.8 Specimen Plasma Performing Organization Address [facility] Phone Number [facility] [address] [place] [address] [facility] [address] [place] [address] Pathology Luteinizing hormone (09/03/2019 2:49 PM EST) Luteinizing Hormone 6.0 mU/ml [facility] Comment: [facility] Pathology (NOTE) Females: Follicular: 2.4-12.6 Ovulation: 14.0-95.6 Luteal: 1.0-11.4 Post Menopausal: 7.7-58.5 Specimen Plasma Performing Organization Address [facility] Phone Number [facility] [address] [place] [address] [address] Pathology Comprehensive Metabolic Panel (09/03/2019 2:49 PM EST) Albumin 4.5 3.5 - 5.2 g/dL [facility] Pathology Bilirubin, Total 0.5 <1.2 mg/dL [facility] Pathology Calcium 9.1 8.6 - 10.0 mg/dL [facility] Pathology Chloride 102 98 - 107 mmol/L [facility] Pathology Creatinine 0.57 0.50 - 0.90 [facility] mg/dL [facility] Pathology Glucose 88 70 - 140 mg/dL [facility] Pathology Alkaline Phosphatase 40 35 - 104 U/L [facility] Pathology Potassium 3.5 3.4 - 5.1 mmol/L [facility] Pathology Total Protein 7.1 6.4 - 8.3 g/dL [facility] Pathology Sodium 138 136 - 145 mmol/L [facility] Pathology AST/SGO 14 <32 U/L [facility] Pathology Blood Urea Nitrogen 14 6 - 20 mg/dL [facility] Pathology Osmolality, El 286 275 - 300 [facility] mosm/kg [facility] Pathology BUN/Cre Ratio 25 [facility] Pathology Bicarbonate 24 22 - 29 mmol/L [facility] Pathology ALT/SGP 11 <33 U/L [facility] Pathology Anion Gap 12 8 - 15 mmol/L [facility] Pathology A/G Ratio 1.7 [facility] Pathology GFR Non >90 >60 [facility] Ukrainian 2009 CDK-EPI mL/min/1.73m2 [facility] Pathology GFR >90 >60 [facility] 2009 CKD-EPI mL/min/1.73m2 [facility] Pathology Specimen Plasma Performing Organization Address City/State/[facility] Phone Number [facility] [address] [place] [address] [facility] [address] [place] [address] Pathology CBC and Differential (09/03/2019 2:49 PM EST) White Blood Cell 6.7 4 - 10 [facility] 10*3/uL [facility] Pathology Red Blood Cell 4.50 4.1 - 5.3 [facility] 10*6/uL [facility] Pathology Hemoglobin 13.2 11.5 - 15.5 [facility] g/dL [facility] Pathology Hematocrit 39.4 36 - 45 % [facility] Pathology Mean Cell Volume 87.6 80 - 96 fL [facility] Pathology Mean Cell Hemoglobin 29.4 27 - 33 pg [facility] Pathology Mean Cell Hgb Conc 33.6 32.0 - 36.0 [facility] g/dL [facility] Pathology Red Cell Dist Width 13.0 11.5 - 14.5 % [facility] Pathology Platelet Count 213 150 - 400 [facility] 10*3/uL [facility] Pathology Differential Type Automated Diff [facility] Pathology Neutrophil 51 % [facility] Pathology Lymphocyte 40 % [facility] Pathology Monocyte 7 % [facility] Pathology Eosinophil 2 % [facility] Pathology Basophil 0 % [facility] Pathology Abs Neutrophil 3.37 1.8 - 7.0 [facility] 10*3/uL [facility] Pathology Abs Lymphocyte 2.65 1.2 - 4.0 [facility] 10*3/uL [facility] Pathology Abs Monocyte 0.49 0 - 0.8 [facility] 10*3/uL [facility] Pathology Abs Eosinophil 0.12 0 - 0.5 [facility] 10*3/uL [facility] Pathology Abs Basophil 0.03 0 - 0.2 [facility] 10*3/uL [facility] Pathology Nucleated Red Blood 0 0 - 0 [facility] Cells /100{WBCs} [facility] Pathology Specimen EDTA Whole Blood Performing Organization Address City/State/[place] Phone Number [facility] [address] [place] [address] [facility] [address] [place] [address] Pathology documented in this encounter Visit Diagnoses Diagnosis Personal history of Hodgkin lymphoma - Primary Personal history of chemotherapy Personal history of antineoplastic chemotherapy Hodgkin lymphoma of intrathoracic lymph nodes, unspecified Hodgkin lymphoma type documented in this encounter
[2019-10-05 19:31] VITALS: BP 119/82
[2019-10-05 19:40] LABS: Influenza A Molecular Negative (Negative); Influenza B Molecular Negative (Negative)
[2019-10-05] MEDS ORDERED: Azithromycin TAB* 250 MG PO ONE (19:55)
--- NOTE | 2019-10-05 20:43 | ED ---
Throat Pain/Nasal Congestion - HPI Summary HPI Summary: 24 -year-old white female presents with cough with pleuritic chest pain with mild sputum production associated fever chills 5 days but not getting better. Also complains of left ear pain since yesterday. Denies drainage, denies nausea vomiting. - History of Current Complaint Chief Complaint: UCRespiratory Time Seen by Provider: 10/05/19 19:31 Hx Obtained From: Patient Onset/Duration: Gradual Onset Severity: Moderate Associated Signs And Symptoms: Positive: Negative Cough: Nonproductive - Epiglottits Risk Factors Epiglottis Risk Factors: Negative - Allergies/Home Medications Allergies/Adverse Reactions: Allergies Allergy/AdvReac Type Severity Reaction Status Date / Time Penicillins Allergy Hives Verified 10/05/19 19:26 Home Medications: Home Medications Azithromyxin BRAYAN (NF) [Z-Brayan (Zithromax) 250 mg tabs #6] 2 tab PO .TODAY, THEN 1 DAILY #6 tab 10/05/19 [Rx] Bcp 1 tab PO DAILY 10/05/19 [History] D-Methorphan/PE/Acetaminophen [Day Time Cold-Flu Liquid] 1 liq PO Q6H PRN [History Confirmed 10/05/19] Ibuprofen [Motrin Ib] 600 mg PO Q6H PRN 10/05/19 [History Confirmed 10/05/19] PMH/Surg Hx/FS Hx/Imm Hx Previously Healthy: Yes Endocrine/Hematology History: Denies: Hx Diabetes, Hx Thyroid Disease Cardiovascular History: Denies: Hx Hypercholesterolemia, Hx Hypertension, Hx Pacemaker/ICD, Hx Peripheral Vascular Disease Respiratory History: Denies: Hx Asthma, Hx Chronic Obstructive Pulmonary Disease (COPD) GI History: Denies: Hx Crohn's Disease, Hx Diverticulosis, Hx Gall Bladder Disease, Hx Gastroesophageal Reflux Disease, Hx Gastrointestinal Bleed, Hx Irritable Bowel, Hx Obstructive Bowel, Hx Ulcer Musculoskeletal History: Denies: Hx Arthritis, Hx Osteoporosis Sensory History: Denies: Hx Cataracts, Hx Contacts or Glasses, Hx Glaucoma, Hx Hearing Aid Opthamlomology History: Denies: Hx Cataracts, Hx Contacts or Glasses, Hx Glaucoma Neurological History: Denies: Hx Headaches, Hx Seizures, Hx Transient Ischemic Attacks (TIA) Psychiatric History: Denies: Hx Anxiety, Hx Depression, Hx Panic Disorder - Cancer History Cancer Type, Location and Year: Hodgkins lymphoma- 2014 - Surgical History Surgery Procedure, Year, and Place: port for chemo Infectious Disease History: No Infectious Disease History: Denies: Hx Clostridium Difficile, Hx Hepatitis, Hx Human Immunodeficiency Virus (HIV), Hx of Known/Suspected MRSA, Hx Shingles, Hx Tuberculosis, Hx Known/ Suspected VRE, Hx Known/Suspected VRSA, History Other Infectious Disease, Traveled Outside the [place] in Last 30 Days - Family History Known Family History: Positive: Hypertension - Social History Alcohol Use: Rare Hx Substance Use: No Substance Use Type: Reports: None Hx Tobacco Use: No Smoking Status (MU): Never Smoked Tobacco Review of Systems Positive: Fever, Chills ENT: Negative Positive: Ear Ache Cardiovascular: Negative Positive: Cough Gastrointestinal: Negative Genitourinary: Negative Musculoskeletal: Negative Skin: Negative Positive: Headache All Other Systems Reviewed And Are Negative: Yes Physical Exam - Summary Physical Exam Summary: Vital Signs Reviewed: Yes Gen: NAD Eye Exam: Normal Eyes: Positive: Conjunctiva Clear ENT: serous condensed fluid droplets behind left TM, mild posterior auricular LN tenderness Neck: Supple Respiratory: Lungs clear, Normal breath sounds. Negative: Crackles, Rhonchi, Stridor, Wheezing Cardiovascular Exam: Normal, RRR, S1, S2 Abdomen: NT/ND Musculoskeletal Exam: Normal Neurological Exam: Normal Psychological Exam: Normal Skin Exam: Normal Vital Signs On Initial Exam: Initial Vitals Temp Pulse Resp BP Pulse Ox 36.6 C 76 18 119/82 98 10/05/19 19:28 10/05/19 19:28 10/05/19 19:28 10/05/19 19:28 10/05/19 19:28 Diagnostics - Vital Signs Vital Signs Temp Pulse Resp BP Pulse Ox 10/05/19 19:28 36.6 C 76 18 119/82 98 - Laboratory Lab Results: Lab Results 10/05/19 10/05/19 Range/Units 19:24 19:28 Influenza A (Rapid) Negative (Negative) Influenza B (Rapid) Negative (Negative) Group A Strep Rapid Negative (Negative) Lab Statement: Any lab studies that have been ordered have been reviewed, and results considered in the medical decision making process. EENT Course/Dx - Course Assessment/Plan: rapid flu and strep NEG, but has evolving serous OM, z-brayan as directed as pt is PCN allergic - Diagnoses Provider Diagnoses: Acute serous otitis media of left ear Discharge ED - Sign-Out/Discharge Documenting (check all that apply): Patient Departure All imaging exams completed and their final reports reviewed: Yes - Discharge Plan Condition: Stable Disposition: HOME Prescriptions: Azithromyxin BRAYAN (NF) [Z-Brayan (Zithromax) 250 mg tabs #6] 2 tab PO .TODAY, THEN 1 DAILY #6 tab Patient Education Materials: Ear Infection (ED) Forms: *Work Release Referrals: Rizwan Iniguez MD [Primary Care Provider] - - Billing Disposition and Condition Condition: STABLE Disposition: Home
== END 2019-10-05 20:15 | disposition home or self-care (01) ==
LOC: UCEAST 18:38
DX: H65.02 Acute serous otitis media, left ear (principal); Z88.0 Allergy status to penicillin
CPT/HCPCS: 87651; 99212; A9270-GY; G0463

== ENCOUNTER 2023-11-15 17:56 | Inpatient (IN) ==
[2023-11-15] MEDS ORDERED: Prochlorperazine 5 mg/ml 2 ml VIAL (10 mg) IV PRN (19:01)
[2023-11-15] MEDS ORDERED: Lidocaine 1% VIAL 10 MG/ML 30 ML VIAL INJ PRN (19:01)
[2023-11-15] MEDS ORDERED: Nalbuphine 10 MG/ML 1 ML VIAL IV PRN (19:01)
[2023-11-15 20:32] LABS: Urine Benzodiazepine Screen None Detected (None Detect); Urine Cannabinoids Screen None Detected (None Detect); Urine Opiates Screen None Detected (None Detect)
[2023-11-16] MEDS: miSOPROStol 100 mcg TAB SCH (09:25)
[2023-11-16 09:59] LABS: ABS Eosinophils 0.1 10^3/uL (0.0-0.5); ABS Lymphocytes 1.9 10^3/uL (1.0-4.8); ABS Monocytes 0.6 10^3/uL (0.0-0.9); ABS Neutrophils 6.6 10^3/uL (1.5-7.6); ABS Nucleated RBC 0.01 10^3/ul; Eosinophil % 0.9 %; Hemoglobin 11.2 g/dL (11.5-14.3); Mean Corpuscular Hemoglobin 27.3 pg (27-33); Mean Corpuscular Volume 82.7 fL (80-97); Mean Platelet Volume 9.3 fL (7.5-11.2); Nucleated Red Blood Cells % 0.1 %/100WBC (0.0-0.8); Platelet Count 173 10^3/uL (150-450); Red Blood Count 4.11 10^6/uL (3.63-4.92); Red Cell Distribution Width 16.2 % (12-17); White Blood Count 9.3 10^3/uL (3.8-11.8)
[2023-11-16 10:20] LABS: Albumin 3.3 g/dL (3.2-5.2); Albumin/Globulin Ratio 1.3 (1-3); Calcium 8.8 mg/dL (8.6-10.3); Creatinine, Serum 0.42 mg/dL (0.51-0.95); Globulin 2.6 g/dL (2-4); Total Protein 5.9 g/dL (6.4-8.9); eGFR CKD-EPI 138.3 (>60)
[2023-11-16] MEDS: Lactated Ringers 1000 ml BAG 1,000 ML IV ONE (22:30)
[2023-11-17 01:52] LABS: Hematocrit 34.9 % (35-45); Hemoglobin 11.6 g/dL (11.5-14.3); Mean Corpuscular Hemoglobin 27.4 pg (27-33); Mean Corpuscular Hgb Conc 33.1 g/dL (31-36); Mean Corpuscular Volume 82.6 fL (80-97); Mean Platelet Volume 9.7 fL (7.5-11.2); Platelet Count 209 10^3/uL (150-450); Red Blood Count 4.22 10^6/uL (3.63-4.92); Red Cell Distribution Width 16.1 % (12-17); White Blood Count 12.9 10^3/uL (3.8-11.8)
[2023-11-17] MEDS: OBEPIDURAL (200 ML) 200 ML EPIDURAL SCH (02:48)
[2023-11-17 03:01] LABS: Albumin 3.4 g/dL (3.2-5.2); Albumin/Globulin Ratio 1.3 (1-3); Calcium 9.3 mg/dL (8.6-10.3); Creatinine, Serum 0.49 mg/dL (0.51-0.95); Globulin 2.7 g/dL (2-4); Potassium 4.6 mmol/L (3.5-5.0); Total Protein 6.1 g/dL (6.4-8.9); eGFR CKD-EPI 133.2 (>60)
[2023-11-17] MEDS ORDERED: Sodium Citrate/Citric Acid LIQ 15 ML UDC PO PRN (03:15)
[2023-11-17] MEDS ORDERED: Phenylephrine 40 mcg/mL 10mL (400mcg) SYRINGE IV PUSH PRN ×2 (03:15)
[2023-11-17] MEDS ORDERED: Ondansetron 4 mg VIAL 2 MG/ML 2 ml VIAL IV PRN ×2 (03:16→16:50)
[2023-11-17] MEDS: Oxytocin in LR 20,000 MILLI.UNIT/1,000 ML BAG IV SCH ×2 (03:33→17:00)
[2023-11-17] MEDS: Lactated Ringers 1000 ml BAG 1,000 ML IV SCH ×2 (03:34→22:40)
[2023-11-17 03:44] LABS: Urine Appearance Clear; Urine Bilirubin Negative (Negative); Urine Blood Negative (Negative); Urine Color Light-Yellow; Urine Glucose Negative (Negative); Urine Ketones Negative (Negative); Urine Nitrite Negative (Negative); Urine Protein 2+ (>=100 mg/dL) (Negative); Urine Specific Gravity 1.017 (1.002-1.030); Urine Urobilinogen Negative (Negative); Urine pH 6.5 (5.0-8.0)
[2023-11-17 03:45] LABS: Urine Bacteria Absent /HPF (Absent); Urine Red Blood Cell Trace(0-2/hpf) /HPF (0-Trace); Urine Squamous Epithelial Cell Present /HPF (Absent); Urine White Blood Cell Trace(0-5/hpf) /HPF (0-Trace)
[2023-11-17] MEDS: Lactated Ringers 1000 ml BAG 1,000 ML IV ONE (07:00)
[2023-11-17] MEDS: OBEPIDURAL (200 ML) 200 ML EPIDURAL ONE (11:36)
[2023-11-17] MEDS ORDERED: fentaNYL 100 mcg/2 ml 50 MCG/ML VIAL ONE (13:41)
[2023-11-17] MEDS ORDERED: Bupivacaine 0.25% SDV PF 10 ML VIAL INJ ONE (13:41)
[2023-11-17] MEDS ORDERED: Oxytocin 10 UNITS/ML 1 ML VIAL ONE (13:48)
[2023-11-17] MEDS ORDERED: Phenylephrine IV 10 MG/ML 1 ml VIAL ONE (13:48)
[2023-11-17] MEDS ORDERED: Ondansetron 4 mg VIAL 2 MG/ML 2 ml VIAL ONE (13:48)
[2023-11-17] MEDS ORDERED: Lidocaine 2% PF 10 ML AMP (OR) ONE (13:48)
[2023-11-17] MEDS ORDERED: Morphine PF AMP (0.5MG/ML) 5 MG/10 ML AMP ONE (13:48)
[2023-11-17] MEDS ORDERED: Bupivacaine-MPF SPINAL 7.5 MG/ML - 2ML AMP ONE (15:38)
[2023-11-17] MEDS: ceFOXitin 2 GM IVPREMIX 2 GM/50 ML BAG IVPB ONE (15:40)
[2023-11-17] MEDS ORDERED: Naloxone 0.4 mg VIAL 0.4 mg/ml 1 ml VIAL IV PUSH PRN (16:50)
[2023-11-17] MEDS ORDERED: Metoclopramide 5 MG/ML VIAL (10 mg) IV PRN (16:50)
[2023-11-17] MEDS: Acetaminophen IV 1 GM/100ML 1,000 MG/100 ML BAG IV PRN (17:44)
[2023-11-17] MEDS ORDERED: Glycerin ADULT 2.4 gm SUPP PR PRN (18:03)
[2023-11-17] MEDS ORDERED: Witch Hazel PAD JAR TOPICAL PRN (18:03)
[2023-11-17] MEDS ORDERED: Lactated Ringers 1000 ml BAG 1,000 ML IV SCH (19:00)
[2023-11-17] MEDS: Calcium Carb (TUMS) 500 mg CHEW TAB PO SCH (22:38)
[2023-11-17] MEDS: Buffered Lidocaine 1% SYRIN 1 ml INTRADERM ONE (22:38)
[2023-11-17] MEDS: Lidocaine/Epinephrin 1.5%/200 5 ML AMP INJ ONE (22:39)
[2023-11-17] MEDS: Methylergonovine 0.2 mg AMPULE 1 ml AMP ONE (22:40)
[2023-11-17] MEDS: Dinoprostone 10 MG VAG.SUPP VAGINAL ONE (23:54)
[2023-11-18] MEDS: ceFOXitin 2 GM IVPREMIX 2 GM/50 ML BAG IVPB ONE (00:42)
[2023-11-18 06:33] LABS: ABS Basophils 0.1 10^3/uL (0.0-0.1); ABS Eosinophils 0.1 10^3/uL (0.0-0.5); ABS Lymphocytes 1.8 10^3/uL (1.0-4.8); ABS Neutrophils 10.1 10^3/uL (1.5-7.6); ABS Nucleated RBC 0.01 10^3/ul; Eosinophil % 0.6 %; Hematocrit 28.2 % (35-45); Hemoglobin 9.3 g/dL (11.5-14.3); Lymphocyte % 13.6 %; Mean Corpuscular Hemoglobin 27.4 pg (27-33); Mean Corpuscular Hgb Conc 33.1 g/dL (31-36); Mean Corpuscular Volume 82.8 fL (80-97); Mean Platelet Volume 9.3 fL (7.5-11.2); Nucleated Red Blood Cells % 0.1 %/100WBC (0.0-0.8); Platelet Count 139 10^3/uL (150-450); Red Blood Count 3.41 10^6/uL (3.63-4.92); Red Cell Distribution Width 15.8 % (12-17)
[2023-11-20 09:55] VITALS: BP 141/92
== END 2023-11-20 12:32 | disposition home or self-care (01) | DRG 540 ==
LOC: MCHOBOUT 17:56 → MCHOB 19:48
PROVIDERS: ADMIT Obstetrics & Gynecology; ATTEND Obstetrics & Gynecology